=== PATIENT | female | born 2000 | race Caucasian/White ===

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

== ENCOUNTER 2023-07-12 12:27 | Observation (INO) ==
--- OUTSIDE RECORDS SUMMARY | 2023-07-12 12:31 | External Medical Summary | Summary of Care ---
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 0 Active Warfarin Sodium 5 MG Oral Tablet (Coumadin) Take 1 Tablet by mouth every evening. 90 Tablet 0 04/28/2023 Active levETIRAcetam 750 MG Oral Tablet Take 2 Tablets by mouth in the morning and 2 Tablets before bedtime. 360 Tablet 0 04/30/2023 Active Apixaban 5 MG Oral Tablet (Eliquis)Indications: Acute cerebral venous sinus thrombosis,Heterozygo us for prothrombin [id number] mutation (HCC) Take 1 Tablet by mouth in the morning and 1 Tablet before bedtime. 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 NONALLERGIC RHINITIS 12/08/2008 HYPERTROPHY TONSILS,MODERATE 10/27/2007 Other diseases of respirator y system, not elsewhere classified Chronic sinusitis Dysfunction of eustachian tube documented as of this encounter (statuses as of 07/04/2023) Resolved Problems Problem Noted Date Diagnosed Date Resolved Date Dyspnea and respiratory abnormality 09/12/2009 Overview: ICD-10 update of inactive term documented as of this encounter (statuses as of 07/04/2023) Immunizations Name Administration Dates Next Due Season Influenza, Cell Cultu re, 18+ Yrs, With Preserv (Flucelvax) 02/09/2023 documented as of this encounter Social History Tobacco Use Types Packs/Day Years Used Date Smoking Tobacco: Never Passive Smoke Exposure: Yes Comments:mother and father s moke Alcohol Use Standard Drinks/Week Comments No 0 (1 standard drink = 0.6 oz pur e alcohol) Sex and Gender Information Value Date Recorded Sex Assigned at Not on file Gender Identity Not on file Sexual Orientation Not on file Job Start Date Occupation Industry Not on file Not on file Not on file documented as of this encounter Functional Status Functional Status Response Date of Assess ment Are you deaf or do you have serious difficulty h earing? No 10/25/2022 Are you blind or do you have serious difficulty seeing, even when wearing glasses? No 10/25/2022 Do you have serious difficul ty walking or climbing stairs? (5 years old or older) No 10/25/2022 Do you have difficulty dress ing or bathing? (5 years old or older) No 10/25/2022 Because of a physical, menta l, or emotional condition, do you have difficulty doing errands alone such as visiting a doctor s office or shopping? (15 years old or older) No 10/26/19 Cognitive Status Response Date of Assessm ent Because of a physical, menta l, or emotional condition, do you have serious difficulty concentrating, remembering, or making decisions? (5 years old or older) No 10/25/2022 documented as of this encounter Progress Notes * Sagrario Zuñiga RP - 07/04/2023 8:19 AM EDT Medication Therapy Disease Management - Anticoagulation Patient: Ramiro Russell Facer | : 2000 Subjective Patient-Reported Symptoms: Patient Findings Negatives: Signs/symptoms of thrombosis, Signs/symptoms of bleeding, Change in health, Change in alcohol use, Change in activity, Upcoming invasive procedure, Missed doses, Extra doses, Change in medications, Change in diet/appetite, Bruising Objective Current Warfarin Dose As of 07/04/2023 Warfarin maintenance plan: 2.5 mg (5 mg x 0.5) every Sun; 5 mg (5 mg x 1) all other days INR Result As of 07/04/2023 INR goal: 2.0-3.0 INR used for dosin.4 (07/04/2023) Assessment & Plan Warfarin Plan As of 07/04/2023 Full warfarin instructions: 2.5 mg every Sun; 5 mg all other days No change documented: Sagrario Zuñiga carly Next INR check: 08/08/2023 Repeat PT/INR in 5 week(s) Weekly dose: not changed Additional Dosing Information: Description Hem/Onc note (02/25): Dr. Kaufman would like to wait on transition from Warfarin to DOAC until f/u MRI in May Per [facility] message strand starting 06/23, hem/onc preference is eliquis. Script was sent, but we are waiting to transition until patient is off keppra, which should be in ~4 weeks. Sagrario Zuñiga RP Clinical Pharmacist 07/04/2023, 8:19 AM documented in this encounter Plan of Treatment Upcoming Encounters Date Type Department Care Team (Late st Contact Info) Description 08/08/2023 9:30 AM EDT [facility] [address] [facility] [address] [place] [address] [place] [facility] [place] [address] 08/29/2023 2:30 PM EDT Office Visit Hematology/Oncology [facility] [address] [place] [address] Magnolia Hernández CRNP [address] [facility] [place] [id number] Health Maintenance Due Date Last Done Comments Yearly Wellness Visit 2005 DTaP,Tdap,and Td Vaccines (6 - Tdap) 2012 09/12/2006, 03/25/2003, 03/29/2002, Additional history exists Depression Screening 2013 Gonorrhea / Chlamydia Screen 2016 HIV Screening 2016 Hepatitis C Screening 09/15/2019 Pap Smear 2022 COVID-19 Vaccine ( season) 2022 12/07/2020, 06/05/2020 Hepatitis B Completed 09/16/2002, 01/05, 2001 GARDASIL-HPV IMMUNIZATION SERIES Completed 03/01/2014, 09/17/2013, 01/20/2013 MENINGOCOCCAL (MENACTRA/MENVEO) Completed 09/18/2017, 01/20/2013 Influenza Vaccine (FLU shot) Completed 08/2022, 05/03/2002, 04/02/2002 Pneumococcal Vaccine: Pediatrics (0 to 5 Years) and At-Risk Patients (6 to 64 Years) Aged Out No longer eligible based on patient's age to complete this topic documented as of this encounter Medical Devices Not on filedocumented as of this encounter Procedures Procedure Name Priority Date/Time Associated Diagnosis Comments INR FINGERSTICK, POINT OF CARE STAT 07/04/2023 8:21 AM EDT Acute cerebral venous sinus thrombosis Heterozygous for prothrombin [id number] mutation (HCC) Anticoagulation management encounter pr manager current use of anticoagulant therapy documented in this encounter Results * INR FINGERSTICK, POINT OF CARE (07/04/2023 8:21 AM EDT) Fingerstick INR 2.4 INR 8:23 AM EDT [facility] Blood 07/04/2023 8:21 AM EDT 07/04/2023 8:23 AM EDT Narrative [facility]- - 07/04/2023 8:23 AM EDT Therapeutic ranges for non-operative patients: Prophylaxsis/treatment of DVT: (Range:2.0-3.0) Treatment of pulmonary embolism:(Range:2.0-3.0) Prevention of systemic embolism from: -tissue heart valves -acute myocardial infarction -valvular heart disease -atrial fibrillation (Range: 2.0-3.0) Mechanical prosthetic valves: (Range: 2.5-3.5) Sagrario Zuñiga 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) Primary hypercoagulable state Anticoagulation management encounter Encounter for therapeutic drug monitoring pr manager current use of anticoagulant therapy documented in this encounter Advance Directives Documents on File Type Date Recorded Patient Interior Specialist Expl anation Advance Directives and Living Will 10/30/2022 Edgar Meza ADVANCE DIRECT ANIBAL / LIVING WILL DURABLE HEALTHCARE POA Latest Code Status on File Code Status Date Activated Date Inactivated Comments Full Code 10/25/2022 5:04 AM 11/08/2022 9:21 PM This o rder reflects the patients wishes and were consensually agreed upon. Question Answer Comments Discussion of Advance Directives occurred with: Not Discussed due to patient's condition Will discuss once patient arrives at [facility] Healthcare Agents on File Name Relationship Healthcare Agent Relationship Communication Edgar Facer Father Health Care Agen fly (per Health Care Power of Heel Cutter document) [email or web address] Other First Alternat e Health Care Agent (per Health Care Power of Heel Cutter document) [email or web address] Care Teams Heating And Refrigeration Inspector Relationship Specialty Start Date End Date Any Underwood MD [address] [place] [address] [place] [id number] PCP - General Internal Medicine 10/25/22 documented as of this encounter"
--- OUTSIDE RECORDS SUMMARY | 2023-07-12 12:31 | External Medical Summary | Summary of Care ---
Author Name Unknown Organization [facility] Address [address] [place] [address] Phone [phone] Care Team Providers Care Steel Die Engraver Name Role Phone Any Underwood MD Primary Care Provid er Encounter Details Date Type Department Care Team (Late st Contact Info) Description 07/01/2023 Telephone Family Practice [address] [place] [address] [address] [place] [address] Clarence Hebert, [facility] [address] [place] [address] Allergies No known active allergiesdocumented as of this encounter (statuses as of 07/01/2023) Medications Medication Sig Dispensed Refills Start Date [...] cerebral venous sinus thrombosis,Heterozygo us for prothrombin [id number] mutation (HCC) Take 1 Tablet by mouth in the morning and 1 Tablet before bedtime. 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 07 / UTI (urinary tract infection) 11/01/2022 Metabolic acidosis [...] as of this encounter (statuses as of 07/01/2023) Resolved Problems Problem Noted Date Diagnosed Date Resolved Date Dyspnea and respiratory abnormality 09/12/2009 Overview: ICD-10 update of inactive term documented as of this encounter (statuses as of 07/01/2023) Immunizations Name Administration Dates Next Due Season [...] (15 years old or older) No 10/26/19 23 Cognitive Status Response Date of Assessm ent Because of a physical, menta l, or emotional condition, do you have serious difficulty concentrating, remembering, or making decisions? (5 years old or older) No 10/25/2022 documented as of this encounter Miscellaneous Notes * Telephone Encounter - Sagrario Zuñiga [facility] - 07/01/2023 11:18 AM EDT [facility] is aware and this is going to be discussed with patient on Friday. Sagrario Zuñiga PharmD, BCACP Clinical Pharmacist Medication Therapy Disease Management 07/01/2023, 11:19 AM * Telephone Encounter - Clarence Hebert [facility] - 07/01/2023 11:12 AM EDT Images from the original note were not included. Following BPA received: Clarence Hebert PharmD Clinical Pharmacist Medication Therapy Management Clinic 07/01/2023 11:12 AM documented in this encounter Plan of Treatment Upcoming Encounters Date Type Department Care Team (Late st Contact Info) Description 07/04/2023 3:10 PM EDT Anticoagulation Pharmacy, [address] [place] [address] [place], [facility] [address] [place] [address] 08/29/2023 2:30 PM EDT Office Visit Hematology/Oncology Tamir [place] [address] [facility] [place] [address] Magnolia Hernández CRNP [address] [place] [address] Health Maintenance Due Date Last Done Comments Yearly Wellness Visit 2005 DTaP,Tdap,and Td Vaccines (6 - Tdap) 2012 09/12/2006, 03/25/2003, 03/29/2002, Additional history exists Depression Screening 2013 Gonorrhea / Chlamydia Screen 2016 HIV Screening 2016 Hepatitis C Screening 09/15/2019 Pap Smear 2022 COVID-19 Vaccine ( season) 2022 06/05/2020 Hepatitis B Completed 09/16/2002, 01/05, 2001 [...] Not on filedocumented as of this encounter Advance Directives Documents on File Type Date Recorded Patient Senior Client Advisor Expl anation Advance Directives and Living Will [...] condition Will discuss once patient arrives at [facility] Healthcare Agents on File Name Relationship Healthcare Agent Relationship Communication Edgar Fosterr Father Health Care Agen t (per Health Care Power of Oracle Drm Consultant document) [email or web address] [email or web address] Significant Other First Alternat e Health Care Agent (per Health Care Power of Oracle Drm Consultant document) [email or web address] Steel Die Engraver Relationship Specialty Start Date End Date Any Underwood MD [address] [place] [address] [place] [address] PCP - General Internal Medicine 10/25/22 documented as of this encounter
--- OUTSIDE RECORDS SUMMARY | 2023-07-12 12:31 | External Medical Summary | Summary of Care ---
Author Name Unknown Organization [facility] Address [address] [place] [address] Phone [phone] Care Team Providers Care Assistant Refinery Operator Name Role Phone Any Underwood MD Primary Care Provid er Encounter Details Date Type Department Care Team (Late st Contact Info) Description 07/01/2023 Telephone Family Practice [address] [place] [address] [address] [place] [address] Clarence Hebert, [facility] [address] [place] [address] Allergies No known active [...] cerebral venous sinus thrombosis,Heterozygo us for prothrombin [id number] mutation (HCC) Take 1 Tablet by mouth in the morning and 1 Tablet before bedtime. 60 Tablet 11 06/30/2023 Active documented as of this encounter (statuses as of 07/01/2023) Active Problems Problem Noted Date Diagnosed Date Heterozygous for prothrombin [id number] mutation 07 / UTI (urinary tract infection) [...] Notes * Telephone Encounter - Sagrario Zuñiga [facility] - 07/01/2023 11:18 AM EDT [facility] is aware and this is going to be discussed with patient on Friday. Sagrario Zuñiga PharmD, BCACP Clinical Pharmacist Medication Therapy Disease Management 07/01/2023, 11:19 AM * Telephone Encounter - Clarence Hebert [facility] - 07/01/2023 11:12 AM EDT Images from the original note were not included. Following BPA received: Clarence Hebert PharmD Clinical Pharmacist Medication Therapy Management Clinic 07/01/2023 11:12 AM documented in this encounter Plan of Treatment Upcoming Encounters Date Type Department Care Team (Late st Contact Info) Description 07/04/2023 3:10 PM EDT Anticoagulation Pharmacy, [address] [place] [address] [place], [facility] [address] [place] [address] 08/29/2023 2:30 PM EDT Office Visit Hematology/Oncology Tamir [place] [facility] [place] [address] Magnolia Hernández CRNP [address] [place] [address] Health Maintenance Due Date Last Done Comments [...] Documents on File Type Date Recorded Patient Faculty Physician Expl anation Advance Directives and Living Will [...] condition Will discuss once patient arrives at [facility] [place] Healthcare Agents on File Name Relationship Healthcare Agent Relationship Communication Edgar Fosterr Father Health Care Agen t (per Health Care Power of Forestry Pilot document) [email or web address] [email or web address] Significant Other First Alternat e Health Care Agent (per Health Care Power of Forestry Pilot document) [email or web address] Care Teams Assistant Refinery Operator Relationship Specialty Start Date End Date Any Underwood MD [address] [place] [address] [place] [address] PCP - General Internal Medicine 10/25/22 documented as of this encounter
--- OUTSIDE RECORDS SUMMARY | 2023-07-12 12:31 | External Medical Summary | Summary of Care ---
Author Name Unknown Organization [facility] Address [address] [place] [address] Phone [phone] Care Team Providers Care Husker Operator Name Role Phone Any Underwood MD Primary Care Provid er Reason for Visit * Reason Onset Date Comments Medication Question 07/03/2023 Encounter Details Date Type Department Care Team (Late st Contact Info) Description 07/03/2023 Telephone Hematology/Oncology Tamir Eagle [place] [address] [place] [address] Luca Kaufman MD [address] [place] [address] Medication Question Allergies No known active allergiesdocumented as of [...] cerebral venous sinus thrombosis,Heterozygo us for prothrombin U06488I mutation (HCC) Take 1 Tablet by mouth in the morning and 1 Tablet before bedtime. 60 Tablet 11 06/30/2023 Active documented as of this encounter (statuses as of 07/04/2023) Active Problems Problem Noted Date Diagnosed Date Heterozygous for prothrombin [id number] mutation UTI (urinary tract infection) 11/01/2022 Metabolic acidosis 10/31/2022 ICH (intracerebral hemorrhage) 10/30/2022 Acute cerebral venous sinus thrombosis 3 Stroke with cerebral ischemia 10/25/2022 Seizure-like activity [...] Notes * Telephone Encounter - Sagrario Zuñiga [facility] - 07/04/2023 7:58 AM EDT Noted and appreciated. I will discuss with patient in appointment today, but [facility] is leaning towards staying on warfarin due to this potential interaction. Sagrario Zuñiga PharmD, [facility] Clinical Pharmacist Medication Therapy Disease Management 07/04/2023, 7:59 AM * Telephone Encounter - Amy Cuellar RP - 07/03/2023 4:25 PM EDT As per UpToDate, levetiracetam can diminish the therapeutic effect of Apixaban. Noted previously by [facility] in 06/24/23 encounter, "I will send the eliquis script to your preferred pharmacy now, but do not start taking it until we talk on 07/03." Advised patient that I would send request to managing pharmacist to further advise on. Pt is aware to not start Eliquis until after [facility] appt/INR check tomorrow. Please advise patient at appt on 07/03on possible interaction with Keppra and Eliquis. Thank you, mAy Cuellar PharmD Clinical Pharmacist [facility] (formerly [employer] [phone] 07/03/2023, 4:28 PM * Telephone Encounter - Airam Medeiros PHARM Tech - 07/03/2023 4:15 PM EDT Pt calling to advise she picked up Apixiban from pharmacy and they advised of interaction with Levetiracetam. Pt wants to clarify it is okay to take both - warm transferred to [facility]. Thanks, Airam Medeiros Gizzard Peeler [facility] ([facility]) 07/03/2023,4:15 PM documented in this encounter Plan of Treatment Upcoming Encounters Date Type Department Care Team (Late st Contact Info) Description 07/04/2023 3:10 PM EDT Anticoagulation Pharmacy, [place] [address] [place] [address] [place], [facility] [address] [place] [address] 08/29/2023 2:30 PM EDT Office Visit Hematology/Oncology [facility] [place] [address] [place] [address] Magnolia Hernández CRNP [address] [place] [address] Health Maintenance Due Date Last Done Comments [...] Not on filedocumented as of this encounter Visit Diagnoses Diagnosis Acute cerebral venous sinus thrombosis- Primary 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 [id number] mutation (HCC) Primary hypercoagulable state documented in this encounter Advance Directives Documents on File Type Date Recorded Patient Pheresis Specialist Expl anation Advance Directives and Living [...] condition Will discuss once patient arrives at [facility] Healthcare Agents on File Name Relationship Healthcare Agent Relationship Communication Edgar Church Father Health Care Agen t (per Health Care Power of Knotting Machine Operator document) [email or web address] Mickey Meza Significant Other First Alternat e Health Care Agent (per Health Care Power of Knotting Machine Operator document) [email or web address] Care Teams Husker Operator Relationship Specialty Start Date End Date Any Underwood MD [address] [place] [address] [place] [address] PCP - General Internal Medicine 10/25/22 documented as of this encounter
--- OUTSIDE RECORDS SUMMARY | 2023-07-12 12:31 | External Medical Summary ---
Author Name Unknown Address Unknown Organization : Laboratory Report Ordering Provider Test Date Status DC MAK 07/04/2023 08:21:18 Final Therapeutic ranges for non-o perative patients:
Prophylaxsis/treatment of DVT: (Range:2.0-3.0)
Treatment of pulmonary embolism:(Range:2.0-3.0)
Prevention of systemic embolism from:
-tissue heart valves
-acute myocardial infarction
-valvular heart disease
-atrial fibrillation
(Range: 2.0-3.0)
Mechanical prosthetic valves: (Range: 2.5-3.5) Observation Date Value Abnormality Reference (Units ) Status INR in Capillary blood by Coagulation assay 07/04/2023 08:21:18 2.4 (INR) Final Performing Location
--- NOTE | 2023-07-12 12:54 | Emergency Department Note ---
Impression & Plan Seizure, intermediate current use of anticoagulant ED Provider Note Name: OSCAR Russell FACER Age: 22 Sex: Female Arrives Via: Ambulance Informant: Patient and significant other (taemla) who witnessed event ED Provider: Ashish Alex MD Chief Complaint: Seizure Impression: As per impressions above Medical Decision Makin-year-old female with complex history over the last year following CVT and intracranial hemorrhage. Has been following with [facility] neurosurgery since. Over the last few months decreasing her Keppra from 1500 twice daily to 750 daily as of last week. Seizure this morning. Witnessed by significant other. No injuries during this. Patient is a bit uncomfortable post seizure but is neuro intact with NIH of 0. Given Coumadin use and acute seizure CT head was obtained which is fortunately unremarkable other than encephalomalacia from previous injury. Patient was bolused with 1 g Keppra IV along with 1 mg IV Ativan. She was given some IV fluids. Laboratory workup unremarkable other than a significantly elevated prolactin consistent with recent seizure. Reviewed with neurology at [facility] who note it might be beneficial to observe for 24 hours for further monitoring. I think this is reasonable and I reviewed it with the hospitalist will bring her in for further evaluation. Patient does have a moderate headache which we gave some Tylenol for with somewhat improvement. Hospitalist is aware. She does not have any evidence of meningitis and further workup to be initiated by hospitalist team. Triage/Nursing Notes reviewed by Me Differential:Epilepsy, infection, hypoglycemia, electrolyte abnormalities, cardiac sources, intracerebral event, trauma, toxicologic, neurologic, syncope, as well as other pathologies. Vital Signs: reviewed and remarkable for no significant abnormalities Interventions: Keppra 1 g IV, Ativan 1 mg IV, normal saline bolus 1 L IV, Tylenol p.o. Labs:ED labs Reviewed by me and remarkable for elevated prolactin level Imaging:CT of the head without contrast as per my informal interpretation reveals no intracranial hemorrhage or mass effect. Encephalomalacia over the posterior right brain. Confirmed by radiologist. EKG:As per my interpretation. Indication seizure. Sinus tachycardia 129 bpm no ectopy no ischemia. QTc of 454. When compared to EKG of October 24, 2022 there is no significant change. Cardiac/Tele Monitoring: Cardiac Monitoring: An Order was placed for continuous cardiac monitoring. The monitor shows a rate of 90 with a normal sinus rhythm. Consults:Dr Graves [facility] Neurology who suggests observation and return to 750mg- 1g BID Keppra Dr Deng [place] Hospitalist will bring in for further evaluation Plan: Disposition:Hospitalization. Condition: Good History of Present Illness: 22-year-old female arrives for evaluation following seizure. Patient with a history of central venous thrombosis and CVA over last summer. She has been on Coumadin and Keppra since then. Patient has been doing well and no significant issues. She may have bumped the back of her head when unloading groceries a few days ago but denies any headache from that. This morning as she woke up she related to her fianc that she felt something odd. When he looked at her he noticed the left side of her face seem to be twitching. This progressively worsened until she had a full-blown tonic- clonic seizure. Patient was seizing for several minutes before it slowed down she was quite confused. EMS arrived she was still confused though slowly came to as they got her into the ambulance. Patient states she is quite anxious but denies any current headache. She feels a bit foggy denies any nausea, vomiting, loss of bowel bladder control, chest pain, shortness of breath, laceration to tongue, visual changes, neck pain, other concerning signs or symptoms. Denies any change in her medications. She did not yet have her Keppra this morning. Past Medical History:See Below Home Medications:See Below Allergies:See Below Vitals:Blood Pressure: 137/88, Pulse 133, RR 24, T 36.8C, O2 99% on RA Physical Exam: GENERAL: Patient is anxious appearing and in mild distress. Crying HEAD: AT/NC NECK: no ttp nor stepoff, no nuchal rigidity RESPIRATORY: No dyspnea. Clear to auscultation and equal bilaterally. CARDIOVASCULAR: Tachy.No murmur appreciated. GASTROINTESTINAL: Abdomen soft, non-tender, no peritonitis. EXTREMITIES: Normal motion all extremities, no cyanosis, no edema. NEUROLOGIC: Alert and oriented. No focal neurologic deficits appreciated SKIN: No rash, no jaundice, no diaphoresis. PSYCH: Appropriate GCS: 15 ED Course: Times/Reassessments: Patient is much calmer though does relate continued headache for which Tylenol was given. Neuro intact throughout. 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 Dural venous sinus thrombosis ICH (intracerebral hemorrhage) TMJ arthritis Migraine IUD strings lost History of prematurity Depression Surgical History Status post myringotomy with tube placement of both ears S/P wisdom tooth extraction Family History Mother Stroke Epilepsia Denies family history of Ovarian cancer Breast cancer Colorectal cancer Social History Smoking Status: Never smoker Second Hand Exposure: No; Do You Dip or Chew Tobacco: No; Hx Alcohol Use: No Hx Substance Use: No Preferred Language: Luxembourgish Communication Ability: Effective Liquor Merchant Required: No Beliefs That Will Affect Care: None marital status: single Current Living Situation: Significant Other Current Living Situation Comment: Lives with boyfriend and his mother current occupational status: employed current occupation: [employer] ([employer]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) Feels Safe at Home: Yes Safety Concerns: Feels Safe At This Time Childhood Exposure to Second-Hand Smoke: No Dental Care, Regularly: Yes Assistive Devices: None Allergies Allergies Allergy/AdvReac Type Severity Reaction Status Date / Time [id number] Antimigraine AdvReac Verified 07/12/23 15:11 Agents combined oral contraceptives AdvReac Severe CVA - "Pt Uncoded 07/12/23 15:11 cannot take any oral contraceptives due to blood d Home Meds Home Medications Medication Instructions Recorded Confirmed buspirone 10 mg tablet 10 mg PO BID 09/03/22 07/12/23 hydroxyzine HCl 10 mg tablet 5 - 10 mg PO DAILY PRN Anxiety 10/22/22 07/12/23 acetaminophen 325 mg tablet 325 mg PO Q8H PRN Pain 10/24/22 07/12/23 (Tylenol) levetiracetam 750 mg tablet 750 mg PO QAM 11/09/22 07/12/23 warfarin 5 mg tablet See Rx Instructions .Route .COMPLEX 11/09/22 07/12/23 fluoxetine 40 mg capsule 80 mg PO QAM 06/27/23 07/12/23 Results & Data (ED) Vital Signs Vital Signs - 24 hr 07/12/23 12:35 07/12/23 13:06 07/12/23 13:30 Temperature 36.8 C Temperature Source Oral Pulse Rate 133 H 115 H 111 H Respiratory Rate 24 24 18 Respiratory Effort / Characteristics Non-Labored Respiratory Depth Normal Blood Pressure 137/88 120/88 108/78 Blood Pressure Mean 104 98 88 Pulse Oximetry 99 95 96 Oxygen Delivery Method Room Air Room Air Sepsis Recent Fever Within 48 Hours No Sepsis New/Unexplained Change in Mental Status N/A Sepsis Action Taken by Nursing No Action Required 07/12/23 14:00 07/12/23 14:30 07/12/23 15:00 Temperature Temperature Source Pulse Rate 101 H 88 84 Respiratory Rate 22 17 15 Respiratory Effort / Characteristics Respiratory Depth Blood Pressure 119/92 108/83 127/86 Blood Pressure Mean 101 91 99 Pulse Oximetry 96 98 96 Oxygen Delivery Method Room Air Room Air Room Air Sepsis Recent Fever Within 48 Hours Sepsis New/Unexplained Change in Mental Status Sepsis Action Taken by Nursing 07/12/23 15:30 Temperature Temperature Source Pulse Rate 87 Respiratory Rate 15 Respiratory Effort / Characteristics Respiratory Depth Blood Pressure 118/88 Blood Pressure Mean 98 Pulse Oximetry 96 Oxygen Delivery Method Room Air Sepsis Recent Fever Within 48 Hours Sepsis New/Unexplained Change in Mental Status Sepsis Action Taken by Nursing Laboratory Data 07/13/23 05:39 07/13/23 05:39 Lab Results 07/12/23 07/12/23 07/12/23 Range/Units 12:36 12:41 13:15 WBC 6.80 (4.8-10.8) K/ul RBC 5.08 (4.20-5.40) M/uL Hgb 13.0 (12.0-16.0) g/dl POC Hgb 13.3 (12.0-16.0) g/dl Hct 40.9 (37.0-47.0) % POC Hct 39 (37-47) % MCV 80.5 (80.0-100.0) fL MCH 25.6 (25.0-34.0) pg MCHC 31.8 L (32.0-36.0) g/dL RDW Std Deviation 38.8 (36.4-46.3) fL RDW Coeff of Mery 13.2 (11.5-14.5) % Plt Count 372 (130-400) K/uL MPV 9.5 (9.4-12.4) fL Immature Gran % (Auto) 0.1 % Neut % (Auto) 59.8 % Lymph % (Auto) 32.1 % [place] % (Auto) 6.0 % Eos % (Auto) 1.3 % Baso % (Auto) 0.7 % Neut # (Auto) 4.06 (1.40-6.50) K/uL Lymph # (Auto) 2.18 (1.20-3.40) K/uL [place] # (Auto) 0.41 (0.11-0.59) K/uL Eos # (Auto) 0.09 (0.00-0.50) K/uL Baso # (Auto) 0.05 (0.00-0.20) K/uL Immature Gran # (Auto) 0.01 (0.01-0.20) K/uL PT 29.6 H (9.0-12.0) Seconds INR 2.9 H (0.9-1.1) APTT 41 H (21-31) Seconds PTT Ratio 1.5 POC Sodium 139 (135-144) mmol/L Sodium 137 (136-145) mmol/L POC Potassium 3.5 (3.3-5.0) mmol/L Potassium 3.5 (3.5-5.1) mmol/L POC Chloride 105 (101-112) mmol/L Chloride 106 (98-107) mmol/L Carbon Dioxide 19 L (21-32) mmol/L POC Total CO2 19 L (24-31) mmol/L Anion Gap 12 H (3-11) POC Anion Gap 19.0 (16-25) mmol/L POC BUN 6 L (7-18) mg/dl BUN 9 (6-23) mg/dl Creatinine 0.76 (0.6-1.2) mg/dl POC Creatinine 0.7 (0.6-1.3) mg/dl Est Cr Clr Drug Dosing 123.6 ml/min Est GFR ( Amer) 130.0 ml/min Est GFR (Non-Af Amer) 112.1 ml/min BUN/Creatinine Ratio 11.8 (10-20) Glucose 132 H (70-99(Fasting)) mg/dl POC Glucose (other) 135 H (70-99) mg/dl Calcium 9.2 (8.6-10.3) mg/dl POC Ioniz Calcium Scott 1.15 (1.12-1.32) mmol/l Magnesium 2.1 (1.7-2.4) mg/dl Total Bilirubin 0.6 (0.2-1.0) mg/dl Direct Bilirubin 0.1 (0-0.2) mg/dl AST 16 (13-39) U/L ALT 11 (7-52) U/L Alkaline Phosphatase 92 (34-104) U/L Troponin I High Sens 2.9 (0-14) pg/ml Total Protein 7.3 (6.0-8.3) gm/dl Albumin 4.2 (3.4-5.0) gm/dl Procalcitonin < 0.02 (0-0.5) ng/ml Prolactin 108.24 ng/ml HCG, Qual Negative (Negative) Urine Color Yellow Urine Appearance Clear (Clear) Urine pH 6.0 (4.5-7.5) Ur Specific [place] 1.017 (1.000-1.030) Urine Protein Negative (Negative) Urine Glucose (UA) Negative (Negative) Urine Ketones Trace H (Negative) Urine Blood 3+ H (Negative) Urine Nitrite Negative (Negative) Urine Bilirubin Negative (Negative) Urine Urobilinogen Negative (Negative) Ur Leukocyte Esterase Negative (Negative) Urine WBC (Auto) 1-5 (0-5) /hpf Urine RBC (Auto) >30 H (0-4) /hpf U Hyaline Cast (Auto) 1-5 (0-5) /lpf U Epithel Cells (Auto) 20-30 H (0-5) /lpf Urine Bacteria (Auto) Negative (Negative) Administered Medications Acetaminophen (Acetaminophen 325 Mg Tab) 650 mg PO Q4H PRN PRN Reason: Pain or Fever Stop: 08/11/23 19:42 Last Admin: 07/12/23 22:03 Dose: 650 mg Documented By: TIAGO Buspirone HCl (Buspirone 5 Mg Tab) 10 mg PO BID [facility] Stop: 08/11/23 20:59 Last Admin: 07/13/23 08:01 Dose: 10 mg Documented By: Admin: 07/12/23 21:01 Dose: 10 mg Documented By: JOAQUIN Fluoxetine HCl (Fluoxetine Hcl 20 Mg Cap) 80 mg PO QAM [facility] Stop: 08/12/23 08:59 Last Admin: 07/13/23 08:01 Dose: 80 mg Documented By: ALESIA Levetiracetam (Levetiracetam 250 Mg Tab) 750 mg PO BID [facility] Stop: 08/11/23 20:59 Last Admin: 07/13/23 08:01 Dose: 750 mg Documented By: Admin: 07/12/23 21:01 Dose: 750 mg Documented By: JOAQUIN Warfarin Sodium (Warfarin Sod 5 Mg Tab) 5 mg PO [id number] [facility] Stop: 08/11/23 19:59 Last Admin: 07/12/23 21:00 Dose: 5 mg Documented By: JOAQUIN Discontinued Medications Acetaminophen (Acetaminophen 500 Mg Tab) 1,000 mg PO NOW STA Stop: 07/12/23 14:13 Last Admin: 07/12/23 14:25 Dose: 1,000 mg Documented By: CURTIS Sodium Chloride (Nss) 1,000 mls @ 999 mls/hr IV .Q1H1M ONE Stop: 07/12/23 13:53 Last Infusion: 07/12/23 15:00 Dose: Infused Documented By: Admin: 07/12/23 12:59 Dose: 999 mls/hr Documented By: CURTIS Levetiracetam (Levetiracetam 500 Mg/5 Ml Vial) 1,000 mg IV NOW STA Stop: 07/12/23 12:53 Last Admin: 07/12/23 12:59 Dose: 1,000 mg Documented By: CURTIS Lorazepam (Lorazepam 1 Mg/1 Ml Syr Ed Inj Use) 1 mg IV ONE STA Stop: 07/12/23 12:53 Last Admin: 07/12/23 12:59 Dose: 1 mg Documented By: CURTIS Oxycodone HCl (Oxycodone Hcl Ir 5 Mg Tab (Immediate Release)) 5 mg PO NOW STA Stop: 07/12/23 17:42 Last Admin: 07/12/23 18:20 Dose: 5 mg Documented By: SHEYLA Discharge Plan Visit Data Chief Complaint: Seizure ED Provider: Ashish Alex Discharge Problem: Seizure, intermediate current use of anticoagulant Patient Disposition: Admitted As Inpatient Discharge Instructions Interventions: ED Discharge Assessment Last Done: 07/12/23 18:49
[2023-07-12 12:57] LABS: iSTAT Creatinine 0.7 mg/dl (0.6-1.3); iSTAT Hemoglobin 13.3 g/dl (12.0-16.0); iSTAT Ionized Calcium 1.15 mmol/l (1.12-1.32); iSTAT Potassium 3.5 mmol/L (3.3-5.0)
[2023-07-12] MEDS: LORazepam 1 MG/1 ML SYR ED Inj Use IV STA (12:59)
[2023-07-12] MEDS: levETIRAcetam 500 MG/5 ML VIAL IV STA (12:59)
[2023-07-12] MEDS: SODIUM CHLORIDE 0.9% 1,000 ML IV ONE (12:59)
[2023-07-12 13:23] LABS: Basophils # (auto) 0.05 K/uL (0.00-0.20); Basophils % (auto) 0.7 %; Eosinophils # (auto) 0.09 K/uL (0.00-0.50); Eosinophils % (auto) 1.3 %; Hematocrit (blood only) 40.9 % (37.0-47.0); Immature Granulocytes # (auto) 0.01 K/uL (0.01-0.20); Immature Granulocytes % (auto) 0.1 %; Lymphocytes # (auto) 2.18 K/uL (1.20-3.40); Lymphocytes % (auto) 32.1 %; Mean Corpuscular Hemoglobin 25.6 pg (25.0-34.0); Mean Corpuscular Hgb Conc 31.8 g/dL (32.0-36.0); Mean Corpuscular Volume 80.5 fL (80.0-100.0); Mean Platelet Volume 9.5 fL (9.4-12.4); Monocytes # (auto) 0.41 K/uL (0.11-0.59); Neutrophils # (auto) 4.06 K/uL (1.40-6.50); Neutrophils % (auto) 59.8 %; Platelet Count 372 K/uL (130-400); RDW Coefficient of Variation 13.2 % (11.5-14.5); RDW Standard Deviation 38.8 fL (36.4-46.3); Red Blood Count 5.08 M/uL (4.20-5.40)
[2023-07-12 13:28] LABS: Pregnancy Test, Serum Negative (Negative)
[2023-07-12 13:34] LABS: INR 2.9 (0.9-1.1); Partial Thromboplastin Ratio 1.5; Partial Thromboplastin Time 41 Seconds (21-31); Prothrombin Time 29.6 Seconds (9.0-12.0)
[2023-07-12 13:35] LABS: Appearance Urine Clear (Clear); Bacteria Urine Automated Negative (Negative); Bilirubin Urine Negative (Negative); Blood Urine 3+ (Negative); Color Urine Yellow; Epithelial Cell Urine Auto 20-30 /lpf (0-5); Glucose Urine UA Negative (Negative); Ketones Urine Trace (Negative); Leukocyte Esterase Urine Negative (Negative); Nitrite Urine Negative (Negative); Protein Urine Negative (Negative); RBC Urine Automated >30 /hpf (0-4); Specific Gravity Urine 1.017 (1.000-1.030); Urobilinogen Urine Negative (Negative)
[2023-07-12 13:42] LABS: Albumin Level 4.2 gm/dl (3.4-5.0); BUN Creatinine Ratio 11.8 (10-20); Bilirubin Direct 0.1 mg/dl (0-0.2); Bilirubin,Total 0.6 mg/dl (0.2-1.0); Calcium 9.2 mg/dl (8.6-10.3); Creatinine Clr Calc Pharmacy 123.6 ml/min; Est GFR (Non-African American) 112.1 ml/min; Magnesium 2.1 mg/dl (1.7-2.4); Potassium 3.5 mmol/L (3.5-5.1); Total Protein 7.3 gm/dl (6.0-8.3)
--- NOTE | 2023-07-12 13:44 | CT Scan Report ---
CT head/brain wo con CLINICAL HISTORY: seizure, on coumadin, history cvt Technique: Contiguous axial CT images of the head were acquired from the base of the skull to the guilherme lisa without intravenous contrast administration. Images were viewed in brain, subdural and bone windo ws. Automated dose lowering techniques and/or adjustment according to patient size were utilized for this exam. Comparison: Comparison is made to CT head 11/09/[address] head 10/23/2022 Findings: There is mild prominence of the ventricles, similar in extent to prior exam. There is encephalomalaci a in the right parietal lobe at the site of prior hemorrhage. Imaged portions of the paranasal sinuses and mastoid air cells are clear. The orbits appear normal. There are no acute fractures of the calvaria or scalp swelling. Impression: 1. No acute abnormality is seen. 2. Encephalomalacia of the prior focus of hemorrhage. ACT 112: Negative or not required by law. Electronically signed by: Tico Walker M.D. 07/12/2023 1:42 PM
[2023-07-12 13:48] LABS: Troponin I High Sensitivity 2.9 pg/ml (0-14)
[2023-07-12] MEDS: ACETAMINOPHEN 500 MG TAB PO STA (14:25)
--- NOTE | 2023-07-12 14:43 | XRay Report ---
XR chest 1V portable CLINICAL HISTORY: seizure TECHNIQUE: Single frontal radiograph of the chest was obtained. Comparison: Comparison is made to chest radiograph 02/14/2021 FINDINGS: No lines and tubes are seen. The cardiomediastinal silhouette is normal. The lungs are clear. No evid ence of pleural effusion or pneumothorax. IMPRESSION: No acute chest disease. ACT 112: Negative or not required by law. Electronically signed by: Tico Walker M.D. 07/12/2023 2:41 PM
--- NOTE | 2023-07-12 15:54 | History & Physical Report ---
Date of Service July 12, 2023 Assessment & Plan (1) Seizure: Plan: No precipitating event other than reducing her Keppra dosing, suspect just due to encephalomalacia with reducing her Keppra dosing to once daily and missing her dose this morning She had no seizure on Keppra 750mg PO BID therefore will go back to this dosing Given ongoing headache despite acetaminophen although this is not too unusual for her on discussion again with [facility] neurology Dr Graves and recommended Brain MRI and MRV Seizure protocol ordered Will need to follow up with [facility] neurology on discharge as she has not established with a neurologist for seizures She was advised to stop driving and DMV DL-13 form has been electronically submitted (2) Thrombosis, 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 s/p mechanical thrombectomy @ [facility] Suspected to have occurred due to congenital hypercoagulability with prothrombin mutation while on combined oral contraceptive pill Continue warfarin, INR daily (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: (4) History of CVA (cerebrovascular accident): (5) Migraine: Plan: Reports headaches 3 times a week however current headache is lasting longer than usual in addition to jaw pain s/p seizure (6) Depression: Plan: Continue fluoxetine and BuSpar Plan VTE Prophylaxis - warfarin Diet - regular Disposition - observation to med/tele Admission and Anticipated Discharge Date Admission Date: July 12, 2023 History of Present Illness Chief Complaint: Seizure Primary Care Provider: Lorri Bundy MD Ramiro Facer is a 22 year old female with 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 Seizure occurred today at around 11:30 AM lasting for just a few minutes. Patient does not remember event. History obtained from boyfriend at bedside. Occurred while in the bed. Decerebrate posturing followed by clonic movements. Postictal following this. She did not hit her head or fall off the bed, but has been complaining of jaw pain and some neck pain since the seizure. She denies any alcohol use and is otherwise well without any infection symptoms. She did hit her head on while getting out of the car but this was a minor bump. 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 These chronic headaches are usually relieved with acetaminophen alone. She reports being advised to avoid NSAIDs by her neurosurgeon. She has been weaning down on her Keppra to 1500mg PO BID post operatively to 750mg PO BID at the end of April and 750mg PO daily since 07/01. She went back to sleep this morning therefore did not take her morning dose prior to her seizure. She reports no deficits as a result of her CVA. Allergies Allergy/AdvReac Type Severity Reaction Status Date / Time [id number] Antimigraine AdvReac Verified 07/12/23 15:11 Agents combined oral contraceptives AdvReac Severe CVA - "Pt Uncoded 07/12/23 15:11 cannot take any oral contraceptives due to blood d Home Medications Medication Instructions Recorded Confirmed Type buspirone 10 mg tablet 10 mg PO BID 09/03/22 07/12/23 History hydroxyzine HCl 10 mg tablet 5 - 10 mg PO DAILY PRN Anxiety 10/22/22 07/12/23 History acetaminophen 325 mg tablet 325 mg PO Q8H PRN Pain 10/24/22 07/12/23 History (Tylenol) levetiracetam 750 mg tablet 750 mg PO QAM 11/09/22 07/12/23 History warfarin 5 mg tablet See Rx Instructions .Route .COMPLEX 11/09/22 07/12/23 History fluoxetine 40 mg capsule 80 mg PO QAM 06/27/23 07/12/23 History Past Med/Surg History Medical History (Updated 07/12/23 @ 22:42 by León Deng MD) Seizure 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 Dural venous sinus thrombosis ICH (intracerebral hemorrhage) TMJ arthritis Migraine IUD strings lost History of prematurity Depression Surgical History Status post myringotomy with tube placement of both ears S/P wisdom tooth extraction Family History Mother Stroke Epilepsia Denies family history of Ovarian cancer Breast cancer Colorectal cancer Social History Smoking Status: Never smoker Second Hand Exposure: No; Do You Dip or Chew Tobacco: No; Hx Alcohol Use: No Hx Substance Use: No Preferred Language: Yi Communication Ability: Effective 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 Beliefs That Will Affect Care: None marital status: single Current Living Situation: Significant Other Current Living Situation Comment: Lives with boyfriend and his mother current occupational status: employed 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) Feels Safe at Home: Yes Safety Concerns: Feels Safe At This Time Childhood Exposure to Second-Hand Smoke: No Dental Care, Regularly: Yes Assistive Devices: None Review of Systems Review of Systems: All systems reviewed & are unremarkable except as noted in HPI & below Physical Exam Constitutional: WD/WN, vitals as above Eyes: PERRL, conjunctivae normal, anicteric sclerae ENMT: external ear and nose normal, oropharynx normal Respiratory: normal respiratory effort, lungs clear to auscultation Cardiovascular: RRR, no murmur, no edema Gastrointestinal (Abdomen): normal bowel sounds, soft, nontender, no hepatosplenomegaly Musculoskeletal: no cyanosis or clubbing, extremities motor strength 5/5 Skin: no rashes, warm and dry Neurologic: moves all extremities and awake; not confused Psychiatric: A+Ox3, euthymic affect Lymphatic: no cervical lymphadenopathy Results & Data Results & Data Vital Signs (Past 12 Hours) Vital Signs Temp Pulse Resp BP Pulse Ox O2 Del Method 07/12/23 14:00 101 H 22 119/92 96 Room Air 07/12/23 13:30 111 H 18 108/78 96 07/12/23 13:06 115 H 24 120/88 95 Room Air 07/12/23 12:35 36.8 C 133 H 24 137/88 99 Room Air Laboratory Results Abnormal lab results 07/12/23 07/12/23 07/12/23 Range/Units 12:36 12:41 13:15 MCHC 31.8 L (32.0-36.0) g/dL PT 29.6 H (9.0-12.0) Seconds INR 2.9 H (0.9-1.1) APTT 41 H (21-31) Seconds Carbon Dioxide 19 L (21-32) mmol/L POC Total CO2 19 L (24-31) mmol/L Anion Gap 12 H (3-11) POC BUN 6 L (7-18) mg/dl Glucose 132 H (70-99(Fasting)) mg/dl POC Glucose (other) 135 H (70-99) mg/dl Urine Ketones Trace H (Negative) Urine Blood 3+ H (Negative) Urine RBC (Auto) >30 H (0-4) /hpf U Epithel Cells (Auto) 20-30 H (0-5) /lpf Medications Administered ER Medications Given: Lorazepam 1 mg IV Keppra 1000 mg IV Normal saline 1 L bolus Acetaminophen 1000 mg p.o. ECG Rate (beats per minute): 129 Rhythm: sinus tachycardia Findings: + nonspecific-ST abn Comparison ECG Date: from (October 24, 2022) Change: no significant change Code Status & VTE Plan Code Status Full VTE Prophylaxis Plan VTE Prophylaxis will be ordered: Yes PG Care Time/CCT Total # of Minutes Spent Total Time Spent with Patient: Total time spent is greater than 50% in coordination of care (as documented) at patient's floor/unit and/or counseling patient: Coding Level of Care Code 22122 INT INP/OBS CARE 3/75MIN Diagnoses Seizure R56.9 Thrombosis, superior sagittal sinus G08 Prothrombin [id number] mutation D68.52 History of CVA (cerebrovascular accident) Z86.73 Migraine G43.909 Depression F32.9
[2023-07-12] MEDS: oxyCODONE HCL IR 5 MG TAB (IMMEDIATE RELEASE) PO STA (18:20)
[2023-07-12] MEDS ORDERED: WARFARIN SOD 5 MG TAB PO SCH (19:43)
[2023-07-12] MEDS: WARFARIN SOD 5 MG TAB PO SCH (21:00)
[2023-07-12] MEDS: busPIRone 5 MG TAB PO SCH (21:01)
[2023-07-12] MEDS: levETIRAcetam 250 MG TAB PO SCH (21:01)
--- NOTE | 2023-07-12 22:02 | Electrocardiogram Report ---
Test Reason : Blood Pressure : / mmHG Vent. Rate : 129 BPM Atrial Rate : 129 BPM P-R Int : 136 ms QRS Dur : 068 ms QT Int : 310 ms P-R-T Axes : 068 075 056 degrees QTc Int : 454 ms Sinus tachycardia Possible Left atrial enlargement Nonspecific ST abnormality Borderline ECG When compared with ECG of 24-OCT-2022 23:54, No significant change was found Confirmed by Kj Garland ([id number]) on 07/12/2023 10:01:53 PM Referred By: REFERRED SELF Confirmed By:Kj Garland
[2023-07-12] MEDS: ACETAMINOPHEN 325 MG TAB PO PRN (22:03)
[2023-07-12] MEDS ORDERED: oxyCODONE HCL IR 5 MG TAB (IMMEDIATE RELEASE) PO PRN (22:44)
--- NOTE | 2023-07-12 23:29 | Magnetic Resonance Report ---
Exam(s): MRV HEAD EXAM: MR Venography Head Without Intravenous Contrast CLINICAL HISTORY: Reason for exam: prior sagittal vein thrombosis. TECHNIQUE: Magnetic resonance venography images of the head without intravenous contrast. 3D and MIP reconstructed images were created and reviewed. COMPARISON: No relevant prior studies available. FINDINGS: Superior sagittal sinus: Unremarkable. Patent. Straight sinus: Unremarkable. Patent. Transverse sinuses: Unremarkable. Patent. Sigmoid sinuses: Unremarkable. Patent. Internal jugular veins: Unremarkable as visualized. Internal cerebral and cortical veins: Unremarkable as visualized. IMPRESSION: Negative MRV of the brain. Electronically signed by: Oma Otero MD 07/12/23 23:27 PM
--- NOTE | 2023-07-13 00:07 | Magnetic Resonance Report ---
Exam(s): MRI HEAD Without Contrast EXAM: MR Head Without Intravenous Contrast CLINICAL HISTORY: Reason for exam: headache, prior sagittal vein thrombosis ?acute CV. TECHNIQUE: Magnetic resonance images of the head/brain without intravenous contrast in multiple planes. COMPARISON: Comparison made to prior head CT from July 11, 2024. FINDINGS: Brain: Remote injuries of the right temporal and parietal lobes with encephalomalacia, gliosis and hemosiderin staining. No mass. No hemorrhage. No acute infarct. The flow voids at the base of the brain are intact. Ventricles: Unremarkable. No ventriculomegaly. Bones/joints: Unremarkable. No acute fracture. Sinuses: Chronic ethmoid sinusitis. No acute sinusitis. Mastoid air cells: Unremarkable as visualized. No mastoid effusion. Orbits: Unremarkable as visualized. IMPRESSION: No evidence of acute intracranial pathology. Electronically signed by: Oma Otero MD 07/13/23 00:06 AM
[2023-07-13 06:06] LABS: Basophils # (auto) 0.05 K/uL (0.00-0.20); Basophils % (auto) 1.1 %; Eosinophils # (auto) 0.09 K/uL (0.00-0.50); Eosinophils % (auto) 1.9 %; Hemoglobin 11.9 g/dl (12.0-16.0); Lymphocytes # (auto) 1.88 K/uL (1.20-3.40); Lymphocytes % (auto) 39.7 %; Mean Corpuscular Hgb Conc 32.2 g/dL (32.0-36.0); Mean Platelet Volume 9.6 fL (9.4-12.4); Monocytes # (auto) 0.34 K/uL (0.11-0.59); Monocytes % (auto) 7.2 %; Neutrophils # (auto) 2.37 K/uL (1.40-6.50); Neutrophils % (auto) 50.1 %; Platelet Count 288 K/uL (130-400); RDW Coefficient of Variation 13.6 % (11.5-14.5); RDW Standard Deviation 39.6 fL (36.4-46.3); Red Blood Count 4.57 M/uL (4.20-5.40); White Blood Count 4.73 K/ul (4.8-10.8)
[2023-07-13 06:22] LABS: Anion Gap 8 (3-11); BUN Creatinine Ratio 10.3 (10-20); Blood Urea Nitrogen 6 mg/dl (6-23); Calcium 8.7 mg/dl (8.6-10.3); Carbon Dioxide 21 mmol/L (21-32); Chloride 108 mmol/L (98-107); Creatinine Clr Calc Pharmacy 161.9 ml/min; Est GFR (African American) > 150.0 ml/min; Est GFR (Non-African American) 131.8 ml/min; Glucose 105 mg/dl (70-99(Fasting)); Potassium 3.7 mmol/L (3.5-5.1); Sodium 137 mmol/L (136-145)
[2023-07-13 06:38] LABS: INR 2.9 (0.9-1.1); Prothrombin Time 29.7 Seconds (9.0-12.0)
--- NOTE | 2023-07-13 07:16 | Hospitalist Progress Note ---
Date of Service July 13, 2023 Assessment & Plan Plan (1) Seizure: Plan: No precipitating event other than reducing her Keppra dosing, suspect just due to encephalomalacia with reducing her Keppra dosing to once daily and missing her dose this morning She had no seizure on Keppra 750mg PO BID therefore will go back to this dosing Given ongoing headache despite acetaminophen although this is not too unusual for her on discussion again with [facility] neurology Dr Graves and recommended Brain MRI and MRV Seizure protocol ordered Will need to follow up with [facility] neurology on discharge as she has not established with a neurologist for seizures She was advised to stop driving and DMV DL-13 form has been electronically submitted (2) Thrombosis, 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 s/p mechanical thrombectomy @ [facility] Suspected to have occurred due to congenital hypercoagulability with prothrombin mutation while on combined oral contraceptive pill Continue warfarin, INR daily (3) Prothrombin [id number] mutation: (4) History of CVA (cerebrovascular accident): (5) Migraine: Plan: Reports headaches 3 times a week however current headache is lasting longer than usual in addition to jaw pain s/p seizure (6) Depression: Plan: Continue fluoxetine and BuSpar Plan VTE Prophylaxis - warfarin Diet - regular Disposition - observation to med/tele Admission and Anticipated Discharge Date Admission Date: July 12, 2023 Subjective Pt is a [] yo [] with a past medical history of [] who presents to the hospital on [] for []. Review of Systems Review of Systems: Constitutional: denies fever, chills, [] HEENT: denies congestion, sore throat Cardio: denies chest pain, palpitations Resp: denies shortness of breath, cough GI: denies abdominal pain, nausea, vomiting, constipation, diarrhea : denies pain with urination, change in urinary frequency Neuro: denies new numbness, tingling, weakness Physical Exam Physical Exam: General:Alert and oriented, no acute distress, [] HEENT: Normocephalic, moist oral mucosa, Cardio: Regular rate and rhythm, no murmur, Resp:Lungs clear to auscultation b/l, no wheezes or rhonchi, GI: Soft and nontender, nondistended, bowel sounds active Skin: Warm, pink, dry, Psych: Mood-affect congruence. Results & Data Results & Data Vital Signs (Past 12 Hours) Vital Signs Temp Pulse Pulse Resp BP Pulse Ox Pulse Ox 07/13/23 04:25 36.8 C 79 18 123/84 96 07/13/23 00:28 71 18 118/70 98 07/13/23 00:08 07/12/23 22:00 88 16 125/92 98 07/12/23 22:00 98 07/12/23 19:33 89 07/12/23 19:17 36.9 C 88 20 127/89 96 O2 Del Method O2 Del Method O2 Flow Rate 07/13/23 04:25 Room Air 07/13/23 00:28 Room Air 07/13/23 00:08 Room Air 96 07/12/23 22:00 Room Air 07/12/23 22:00 Room Air 07/12/23 19:33 07/12/23 19:17 Room Air
[2023-07-13] MEDS: FLUoxetine HCL 20 MG CAP PO SCH (08:01)
--- NOTE | 2023-07-13 11:17 | Discharge Summary ---
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 Seizure occurred today at around 11:30 AM lasting for just a few minutes. Patient does not remember event. History obtained from boyfriend at bedside. Occurred while in the bed. Decerebrate posturing followed by clonic movements. Postictal following this. She did not hit her head or fall off the bed, but has been complaining of jaw pain and some neck pain since the seizure. She denies any alcohol use and is otherwise well without any infection symptoms. She did hit her head on while getting out of the car but this was a minor bump. 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 These chronic headaches are usually relieved with acetaminophen alone. She reports being advised to avoid NSAIDs by her neurosurgeon. She has been weaning down on her Keppra to 1500mg PO BID post operatively to 750mg PO BID at the end of April and 750mg PO daily since 07/01. She went back to sleep this morning therefore did not take her morning dose prior to her seizure. She reports no deficits as a result of her CVA. Admission Exam Per Admitting Provider Constitutional: WD/WN, vitals as above Eyes: PERRL, conjunctivae normal, anicteric sclerae ENMT: external ear and nose normal, oropharynx normal Respiratory: normal respiratory effort, lungs clear to auscultation Cardiovascular: RRR, no murmur, no edema Gastrointestinal (Abdomen): normal bowel sounds, soft, nontender, no hepatosplenomegaly Musculoskeletal: no cyanosis or clubbing, extremities motor strength 5/5 Skin: no rashes, warm and dry Neurologic: moves all extremities and awake; not confused Psychiatric: A+Ox3, euthymic affect Lymphatic: no cervical lymphadenopathy Principal Diagnosis Seizure episode Discharge Exam General:Alert and oriented, no acute distress, HEENT: Normocephalic, moist oral mucosa, Cardio: Regular rate and rhythm, no murmur, Resp:Lungs clear to auscultation b/l, no wheezes or rhonchi, GI: Soft and nontender, nondistended, bowel sounds active Skin: Warm, pink, dry, Psych: Mood-affect congruence. Discharge Data Allergies Allergy/AdvReac Type Severity Reaction Status Date / Time [id number] Antimigraine AdvReac Verified 07/12/23 15:11 Agents combined oral contraceptives AdvReac Severe CVA - "Pt Uncoded 07/12/23 15:11 cannot take any oral contraceptives due to blood d Consultations 07/12/23 15:38 ED Decision to Admit Stat Ordered Studies 07/12/23 12:53 CT head/brain wo con Stat 07/12/23 18:36 MRI Brain [MR brain wo con] Stat MRI venography head [MR venography head wo con] Stat Hospital Course (1) Seizure: (2) Thrombosis, superior sagittal sinus: (3) Prothrombin [id number] mutation: (4) History of CVA (cerebrovascular accident): (5) Migraine: (6) Depression: Plan Pt is a 22 yo female with a past med hx of prothrombin [id number] mutation, superior sagittal sinus thrombosis in 2022 on warfarin, seizures, migraines, and depression who presents to the hospital on 07/11 for seizure episode. #Seizure - had 1 seizure episode yesterday around 11:30 am, forgot to take her daily keppra dose at 8 am and did not take it until around 11 am - also had recent dose change from 750 mg BID to 750 mg daily dosing on 07/01 - head CT, brain MRI, and brain MRV done 07/11 all wnl without acute findings - no seizures since episode prior to admission except the one at the time of sagittal sinus thrombosis diagnosis. - Keppra dose increased back to 750 mg BID dosing. She will need to f/u with neurology for her seizures on discharge - she was advised to stop driving and DMV DL-13 form has been electronically submitted by admitting staff #Thrombosis, superior sagittal sinus #Prothrombin [id number] mutation #History of CVA (cerebrovascular accident) - History of sinus thrombosis in 10/2022 s/p mechanical thrombectomy @ [facility] - Suspected to have occurred due to congenital hypercoagulability with prothrombin mutation while on combined oral contraceptive pill - Continue home warfarin, INR 07/11 was 2.9 #Migraine - Reports headaches 3 times a week however current headache is lasting longer than usual in addition to jaw pain s/p seizure - head CT, brain MRI, and brain MRV done 07/11 all wnl without acute findings Total Time Total Time Spent Total Time Spent (In Minutes): As per attending attestation. Discharge Plan Discharge Items Patient Disposition: Home - Self-Care Reason For Visit: SEIZURE Discharge Diagnosis: Seizure episode Activity: Per Instructions section Non-emergency contact: Primary Care Provider and Neurologist Call non-emergency contact if: you have any medication questions and your symptoms worsen Follow-up/Referrals: Lorri Bundy MD [Primary Care Provider] - Diet: Regular Addtl Attending Provider Instructions: You were admitted for a seizure episode, most likely because your daily keppra dose was taken late or because your dose was recently decreased to once daily dosing. We have restarted your twice daily dosing, and as you have had no more seizure episodes since getting to the hospital and the scans of your brain were negative for signs of any other causes for seizures at this time, we feel it is safe for you to return home on your twice daily dosing with neurology follow-up. Please call your neurologist once you are discharged from the hospital to set up an appointment with them in the next 1 week to discuss your keppra dosing and what seizure medication regime will work best for you. You should also follow-up with your primary care physician upon discharge from the hospital. Medications: Your medication list has been reviewed and reconciled upon discharge to ensure accuracy and continuity of care. An updated list of all your medications is included with your hospital discharge paperwork. Please review this list closely, and make note of any changes. We have changed the dosing of your home medication called Levetiracetam (keppra) and sent a new script to your pharmacy. Take Levetiracetam (keppra) as 750 mg twice daily. This medication is for the prevention of seizures. Do not miss or skip doses. Do not stop taking this medication unless advised to do so by a doctor. Take your medications as instructed; do not skip a dose of your medicines. Make sure all of your doctors know every medicine you are taking (including [id number] medicines, vitamins, and supplements). Call your primary care provider before taking any new medicines (including over- the-counter medicines, vitamins, and supplements), because some of these may interact with your current medications, or may make your symptoms worse. Tell your primary care provider if you cannot afford your medications. Activity: You can do normal everyday activities as your body allows. Take rest breaks if you feel tired. Do not overexert. Stop activity if you have pain, shortness of breath or feel dizzy. Follow-up appointments: Make an appointment with your primary care physician within one week of discharge. A copy of this summary will be sent to them. Every time you see your primary care physician, or any other doctor, bring your medication list and a list of questions. CONTACT YOUR PRIMARY CARE PROVIDER if you experience any of the following: Shortness of breath or difficulty breathing Swelling of your feet, ankles, hands or abdomen Feeling tired with normal activity or experiencing dizziness or fainting Difficulty following your treatment plan, or difficulty taking medications CALL 911 OR GO TO THE EMERGENCY DEPARTMENT if you experience any of the following: Severe abdominal pain or nausea/vomiting Severe chest pain, or chest pain that radiates (moves) to your jaw or arm Sudden, severe shortness of breath or difficulty breathing Thank you for allowing us to participate in your care. Pending Studies at Discharge: No Stand-Alone Forms: My [facility] Medications and DC Order Prescriptions: New levetiracetam 750 mg tablet 750 mg PO BID 30 Days Qty: 60 1RF Continued buspirone 10 mg tablet 10 mg PO BID fluoxetine 40 mg capsule 80 mg PO QAM hydroxyzine HCl 10 mg tablet 5 - 10 mg PO DAILY PRN (Reason: Anxiety) acetaminophen [Tylenol] 325 mg Tablet 325 mg PO Q8H PRN (Reason: Pain) warfarin 5 mg tablet See Rx Instructions .ROUTE .COMPLEX Rx Instructions: Take 2.5mg on Sundays and 5mg all other days Discontinued levetiracetam 750 mg tablet 750 mg PO QAM Discharge Orders: Discharge Order (Routine); Ordered 07/13/23 Ordered By: Lisandra Bell Admission Data Admit Date/Time: 07/12/23 15:37 Attending Provider: Catherine Cadet Admit Provider: León Deng Primary Care Provider: Lorri Bundy Other Providers: León Deng Other Interventions: Discharge Summary Assessment (RN) Last Done: 07/13/23 12:16 Supervising Physician Co-Signing Physician Notes Attending Physician Supervision Note: I independently interviewed and examined the patient and verified the so history and physical, reviewed labs and image studies and agree with findings and care plan noted above. Resident Activity Tracking Resident Involvement: Resident Care Provided Care Provided: Adult [facility] Medicine
[2023-07-13] MEDS ORDERED: WARFARIN SOD 2.5 MG TAB PO SCH (16:00)
== END 2023-07-13 12:16 | disposition home or self-care (01) ==
LOC: EDINP 12:27 → ED 12:27 → SUATTDRO 15:37 → EDINP 18:49